=== PATIENT | female | born 1955 | race African-American/Black ===

== ENCOUNTER 2022-04-22 04:26 | Emergency (ER) | payer MEDICARE, MEDICAID ==
[~2022-04-22] VITALS: Ht 175.3 cm; Wt 59.0 kg
[2022-04-22 04:33] VITALS: BP 158/94
[2022-04-22] MEDS ORDERED: TRANEXAMIC ACID 1,000 MG/10 ML IV ONE (05:00)
[2022-04-22 05:22] LABS: BASOPHILS % 1.5 % (0.0-2.0); EOSINOPHILS % 2.3 % (0.0-5.0); HEMATOCRIT. 42.2 % (36.0-48.0); HEMOGLOBIN. 13.5 g/dL (12.0-16.0); LYMPHOCYTES % 22.1 % (20.0-50.0); MEAN CORPUSCULAR HEMOGLOBIN 26.3 pg (28.0-32.0); MEAN CORPUSCULAR VOLUME 82.1 fL (81.0-99.0); MEAN PLATELET VOLUME 8.6 fl (7.4-10.4); NEUTROPHILS % 65.1 % (40.0-76.0); PLATELET 245 x1000/uL (130-400); RED BLOOD CELL COUNT 5.14 mill/uL (4.2-5.4); RED CELL DISTRIBUTION WIDTH 15.5 % (11.6-14.6)
[2022-04-22] MEDS ORDERED: TRANEXAMIC ACID 1,000 MG/10 ML TP NR (05:30)
[2022-04-22] MEDS ORDERED: OXYMETAZOLINE HCL NASAL SPRAY 15ML BOTHNSTRLS SCH (09:00)
== END 2022-04-22 07:58 | disposition home or self-care (01) ==
LOC: ER 04:26
DX: R04.0 Epistaxis (principal); R06.00 Dyspnea, unspecified; J44.1 Chronic obstructive pulmonary disease with (acute) exacerbation; I10 Essential (primary) hypertension
CPT/HCPCS: 36415; 85025; 99283

== ENCOUNTER 2023-04-15 04:20 | Inpatient (IN) | payer MEDICARE, OTHER ==
[~2023-04-15] VITALS: Ht 165.1 cm; Wt 54.6 kg
[2023-04-15] VITALS (9 sets, daily range): BP systolic 125–137; BP diastolic 65–94; PULSE 75–98; RESP 20–40; TEMP 97.5–98.5; O2SAT 99
[2023-04-15] MEDS ORDERED: ONDANSETRON HCL 4MG/2ML INJ IV STA (04:25)
[2023-04-15] MEDS ORDERED: METHYLPREDNISOLONE SOD SUCC 125MG/2ML (ACT-O-VIAL) IV STA (04:25)
[2023-04-15] MEDS ORDERED: IPRATROPIUM BROMIDE (0.02%) 0.5MG/2.5ML NEB HHN STA (04:25)
[2023-04-15] MEDS ORDERED: MORPHINE SULFATE 4 MG/ML CPJ (NOT FOR IM USE) IV STA (04:25)
[2023-04-15] MEDS ORDERED: MAGNESIUM 2 G PREMIX 50 ML IV ONE (04:30)
[2023-04-15] MEDS: ALBUTEROL (0.083%) 2.5MG/3ML NEB HHN SCH ×3 (04:52→05:30)
[2023-04-15 05:01] LABS: BASOPHILS % 0.9 % (0.0-2.0); EOSINOPHILS % 0.1 % (0.0-5.0); HEMATOCRIT. 45.4 % (36.0-48.0); HEMOGLOBIN. 14.2 g/dL (12.0-16.0); LYMPHOCYTES % 9.7 % (20.0-50.0); MEAN CORPUSCULAR HEMOGLOBIN 26.4 pg (28.0-32.0); MEAN CORPUSCULAR HGB CONC 31.3 g/dL (31.0-37.0); MEAN CORPUSCULAR VOLUME 84.3 fL (81.0-99.0); MEAN PLATELET VOLUME 9.2 fl (7.4-10.4); MONOCYTES % 9.5 % (2.0-8.0); NEUTROPHILS % 79.8 % (40.0-76.0); PLATELET 208 x1000/uL (130-400); RED BLOOD CELL COUNT 5.38 mill/uL (4.2-5.4); RED CELL DISTRIBUTION WIDTH 16.5 % (11.6-14.6); WHITE BLOOD COUNT 10.7 x1000/uL (4.5-11.0)
[2023-04-15 05:07] LABS: BG BASE EXCESS -3.6 mmol/L (-2.0-2.0); BG CARBOXYHEMOGLOBIN 2.8 % (0.5-1.5); BG DEOXYHEMOGLOBIN 2.8 % (0.0-5.0); BG FRACTION INSPIRED OXYGEN 50; BG HCO3 ACT 23.3 mmol/L (22.0-26.0); BG METHEMOGLOBIN 0.3 % (0.0-1.5); BG OXYGEN SATURATION 97.1 % (92.0-98.5); BG OXYHEMOGLOBIN 94.1 % (94.0-97.0); BG PH 7.295 (7.350-7.450); BG PO2 101.2 mmHg (75.0-100.0); BG SAMPLE SITE RIGHT RADIAL; BG TOTAL HEMOGLOBIN 14.3 g/dL (12.0-18.0); BG VENT MODE MASK - BIPAP
[2023-04-15 05:19] LABS: ALANINE AMINOTRANSFERASE 20 IU/L (10-49); ALBUMIN 4.7 g/dL (3.2-4.8); ASPARTATE AMINOTRANSFERASE 27 IU/L (<34); BILIRUBIN TOTAL 0.4 mg/dL (0.1-1.0); CALCIUM 9.8 mg/dL (8.7-10.4); CARBON DIOXIDE 19 mEq/L (21-32); CHLORIDE 107 mEq/L (98-107); CREATININE 2.2 mg/dL (0.6-1.0); GLUCOSE 129 mg/dL (70-105); POTASSIUM 4.6 mEq/L (3.5-5.1); PROTEIN TOTAL 7.4 g/dL (6.0-8.3); SODIUM 140 mEq/L (136-145); TROPONIN I HIGH SENSITIVITY 21 ng/L (3.0-34); UREA NITROGEN BLOOD 31 mg/dL (9-23)
[2023-04-15] MEDS ORDERED: IPRATROPIUM/ALBUTEROL 0.5-3(2.5)MG/3ML NEB NEB PRN (08:30)
[2023-04-15] MEDS ORDERED: LEVOFLOXACIN 500MG PREMIX 100 ML IV SCH ×2 (08:30→09:00)
[2023-04-15] MEDS ORDERED: DOCUSATE SODIUM 100MG CAPSULE PO PRN (08:30)
[2023-04-15] MEDS ORDERED: ENOXAPARIN 40MG/0.4ML SYR SUBCUT SCH (08:30)
[2023-04-15] MEDS ORDERED: GUAIFENESIN 200MG/10ML SUGAR FREE UDC PO PRN (08:30)
[2023-04-15] MEDS ORDERED: MAGNESIUM/ALUMINUM HYDROXIDE/SIMETHICONE 30ML UDC PO PRN (08:30)
[2023-04-15] MEDS ORDERED: CLONIDINE 0.1MG TABLET PO PRN (08:30)
[2023-04-15] MEDS ORDERED: NITROGLYCERIN 0.4MG TABLET SL SL PRN (08:30)
[2023-04-15] MEDS ORDERED: ACETAMINOPHEN 325MG TABLET PO PRN ×2 (08:30)
[2023-04-15] MEDS ORDERED: ONDANSETRON HCL 4MG/2ML INJ IV PRN (08:30)
[2023-04-15] MEDS ORDERED: AMLODIPINE 5MG TABLET PO SCH (09:00)
[2023-04-15] MEDS ORDERED: FAMOTIDINE 20MG TABLET PO SCH (09:00)
[2023-04-15] MEDS: ENOXAPARIN 30MG/0.3ML SYR SUBCUT SCH (09:58)
[2023-04-15] MEDS: ZINC SULFATE 220 MG ( 50 ) CAPSULE PO SCH (09:58)
[2023-04-15] MEDS: GUAIFENESIN 600MG ER TABLET PO SCH ×2 (09:58→20:44)
[2023-04-15] MEDS: ASCORBIC ACID 500 MG TABLET PO SCH ×2 (09:58→20:44)
[2023-04-15] MEDS: ASPIRIN 325MG EC TABLET PO SCH (09:58)
[2023-04-15] MEDS: FAMOTIDINE 20MG TABLET PO SCH (09:58)
[2023-04-15 11:02] LABS: CHOLESTEROL 201 mg/dL (<200); HDL CHOLESTEROL 106 mg/dL (>65); IRON 32 ug/dL (50-170); LDL CHOLESTEROL 119 mg/dL (5-100); T4 FREE 0.85 ng/dL (0.89-1.76); THYROID STIMULATING HORMONE 0.67 uIU/mL (0.55-4.78); TOTAL IRON BINDING CAPACITY 149 ug/dl (250-425); TRIGLYCERIDE 77 mg/dL (0-150)
[2023-04-15] MEDS: IPRATROPIUM/ALBUTEROL 0.5-3(2.5)MG/3ML NEB HHN SCH ×2 (12:00→16:00)
[2023-04-15] MEDS: METHYLPREDNISOLONE SOD SUCC 125MG/2ML (ACT-O-VIAL) IV SCH ×2 (16:16→21:24)
[2023-04-15 16:46] LABS: FOLIC ACID (FOLATE) SERUM 19.12 ng/mL (>5.38); VITAMIN B12 SERUM 399 pg/mL (211-911)
[2023-04-15] MEDS: ZOLPIDEM TARTRATE 5MG TABLET PO PRN (20:44)
[2023-04-15 22:54] LABS: CREATINE KINASE 148 IU/L (34-145); CREATINE KINASE MB FRACTION 6.4 ng/mL (0.5-3.6); TROPONIN I HIGH SENSITIVITY 18 ng/L (3.0-34)
[2023-04-16] VITALS (19 sets, daily range): BP systolic 111–170; BP diastolic 61–111; PULSE 71–102; RESP 17–26; TEMP 97–98.6; O2SAT 96–100
[2023-04-16] MEDS: IPRATROPIUM/ALBUTEROL 0.5-3(2.5)MG/3ML NEB HHN SCH ×8 (00:05→23:12)
[2023-04-16 00:58] LABS: HEPATITIS B SURFACE ANTIGEN NEGATIVE (Negative); HEPATITIS C AB NON REACTIVE (Neg) (Negative)
[2023-04-16 06:34] LABS: ALANINE AMINOTRANSFERASE 17 IU/L (10-49); ALBUMIN 3.9 g/dL (3.2-4.8); ASPARTATE AMINOTRANSFERASE 21 IU/L (<34); BILIRUBIN TOTAL 0.2 mg/dL (0.1-1.0); CALCIUM 9.5 mg/dL (8.7-10.4); CARBON DIOXIDE 24 mEq/L (21-32); CHLORIDE 108 mEq/L (98-107); CREATININE 2.4 mg/dL (0.6-1.0); GLUCOSE 150 mg/dL (70-105); HEMOGLOBIN. 12.4 g/dL (12.0-16.0); MEAN CORPUSCULAR HEMOGLOBIN 26.6 pg (28.0-32.0); MEAN CORPUSCULAR HGB CONC 31.7 g/dL (31.0-37.0); MEAN CORPUSCULAR VOLUME 83.8 fL (81.0-99.0); MEAN PLATELET VOLUME 9.5 fl (7.4-10.4); PHOSPHORUS 3.4 mg/dL (2.5-4.9); PLATELET 189 x1000/uL (130-400); PROTEIN TOTAL 6.1 g/dL (6.0-8.3); RED BLOOD CELL COUNT 4.65 mill/uL (4.2-5.4); RED CELL DISTRIBUTION WIDTH 16.2 % (11.6-14.6); SODIUM 139 mEq/L (136-145); UREA NITROGEN BLOOD 53 mg/dL (9-23); WHITE BLOOD COUNT 7.1 x1000/uL (4.5-11.0)
[2023-04-16 06:37] LABS: CREATINE KINASE MB FRACTION 4.7 ng/mL (0.5-3.6)
[2023-04-16 06:52] LABS: DIFFERENTIAL COMMENT 1
[2023-04-16 08:19] LABS: POTASSIUM 6.2 mEq/L (3.5-5.1)
[2023-04-16] MEDS ORDERED: LEVOFLOXACIN 250MG PREMIX 50 ML IV SCH (09:00)
[2023-04-16] MEDS ORDERED: SODIUM POLYSTYRENE SULFONATE 15 G/60 ML BOT PO SCH (10:00)
[2023-04-16] MEDS: ASCORBIC ACID 500 MG TABLET PO SCH ×2 (10:08→20:32)
[2023-04-16] MEDS: GUAIFENESIN 600MG ER TABLET PO SCH ×2 (10:08→20:32)
[2023-04-16] MEDS: ZINC SULFATE 220 MG ( 50 ) CAPSULE PO SCH (10:08)
[2023-04-16] MEDS: ENOXAPARIN 30MG/0.3ML SYR SUBCUT SCH (10:08)
[2023-04-16] MEDS: FAMOTIDINE 20MG TABLET PO SCH (10:09)
[2023-04-16] MEDS: ASPIRIN 325MG EC TABLET PO SCH (10:09)
[2023-04-16] MEDS: AMLODIPINE 10MG TABLET PO SCH (10:09)
[2023-04-16 13:24] LABS: ANISOCYTOSIS 1+; PLATELET ESTIMATE NORMAL
[2023-04-16] MEDS ORDERED: METHYLPREDNISOLONE SOD SUCC 40MG/ML (ACT-O-VIAL) IV SCH (14:00)
[2023-04-16 18:39] LABS: TROPONIN I HIGH SENSITIVITY 18 ng/L (3.0-34)
[2023-04-16] MEDS: ZOLPIDEM TARTRATE 5MG TABLET PO PRN (20:45)
[2023-04-16] MEDS: METHYLPREDNISOLONE SOD SUCC 125MG/2ML (ACT-O-VIAL) IV SCH (21:42)
[2023-04-17] VITALS (18 sets, daily range): BP systolic 100–159; BP diastolic 61–94; PULSE 65–94; RESP 14–26; TEMP 97.2–98.8; O2SAT 91–100
[2023-04-17 01:29] LABS: TROPONIN I HIGH SENSITIVITY 17 ng/L (3.0-34)
[2023-04-17] MEDS: IPRATROPIUM/ALBUTEROL 0.5-3(2.5)MG/3ML NEB HHN SCH ×6 (04:16→23:38)
[2023-04-17] MEDS: METHYLPREDNISOLONE SOD SUCC 125MG/2ML (ACT-O-VIAL) IV SCH ×2 (05:23→21:15)
[2023-04-17 07:27] LABS: TROPONIN I HIGH SENSITIVITY 14 ng/L (3.0-34)
[2023-04-17] MEDS: ENOXAPARIN 30MG/0.3ML SYR SUBCUT SCH (09:47)
[2023-04-17] MEDS: AMLODIPINE 10MG TABLET PO SCH (09:48)
[2023-04-17] MEDS: ASCORBIC ACID 500 MG TABLET PO SCH ×2 (09:48→20:15)
[2023-04-17] MEDS: ASPIRIN 325MG EC TABLET PO SCH (09:48)
[2023-04-17] MEDS: ZINC SULFATE 220 MG ( 50 ) CAPSULE PO SCH (09:49)
[2023-04-17] MEDS: FAMOTIDINE 20MG TABLET PO SCH (09:49)
[2023-04-17] MEDS: GUAIFENESIN 600MG ER TABLET PO SCH ×2 (09:54→20:15)
[2023-04-17] MEDS: ZOLPIDEM TARTRATE 5MG TABLET PO PRN (23:07)
[2023-04-18] VITALS (12 sets, daily range): BP systolic 104–177; BP diastolic 61–90; PULSE 68–103; RESP 18–24; TEMP 97.8–98; O2SAT 91–100
[2023-04-18] MEDS: IPRATROPIUM/ALBUTEROL 0.5-3(2.5)MG/3ML NEB HHN SCH ×3 (04:17→12:26)
[2023-04-18] MEDS: METHYLPREDNISOLONE SOD SUCC 125MG/2ML (ACT-O-VIAL) IV SCH (05:32)
[2023-04-18] MEDS: GUAIFENESIN 600MG ER TABLET PO SCH (08:40)
[2023-04-18] MEDS: ASPIRIN 325MG EC TABLET PO SCH (08:40)
[2023-04-18] MEDS: FAMOTIDINE 20MG TABLET PO SCH (08:40)
[2023-04-18] MEDS: ASCORBIC ACID 500 MG TABLET PO SCH (08:40)
[2023-04-18] MEDS: ZINC SULFATE 220 MG ( 50 ) CAPSULE PO SCH (08:40)
[2023-04-18] MEDS: ENOXAPARIN 30MG/0.3ML SYR SUBCUT SCH (08:41)
[2023-04-18] MEDS: AMLODIPINE 10MG TABLET PO SCH (08:42)
[2023-04-18] MEDS ORDERED: LEVOFLOXACIN 250MG PREMIX 50 ML IV SCH (09:00)
[2023-04-18 12:16] LABS: BG BASE EXCESS -5.5 mmol/L (-2.0-2.0); BG CARBOXYHEMOGLOBIN 0.6 % (0.5-1.5); BG DEOXYHEMOGLOBIN 11.9 % (0.0-5.0); BG FRACTION INSPIRED OXYGEN 21; BG HCO3 ACT 21.7 mmol/L (22.0-26.0); BG METHEMOGLOBIN 0.1 % (0.0-1.5); BG OXYHEMOGLOBIN 87.4 % (94.0-97.0); BG PCO2 48.3 mmHg (35.0-45.0); BG PO2 56.9 mmHg (75.0-100.0); BG SAMPLE SITE RIGHT RADIAL; BG TOTAL HEMOGLOBIN 15.4 g/dL (12.0-18.0); BG VENT MODE ROOM AIR
[2023-04-18] MEDS ORDERED: ATROV INH (14:04)
[2023-04-18] MEDS ORDERED: ALBU6.7H15 INH (14:04)
[2023-04-18] MEDS ORDERED: P20 MT (14:04)
[2023-04-18] MEDS ORDERED: AZIT500T MT (14:04)
[2023-04-18 17:15] LABS: *AMPHETAMINES SCREEN URINE NEGATIVE (NEGATIVE); *BARBITURATES SCREEN URINE NEGATIVE (NEGATIVE); *BENZODIAZEPINES SCREEN URINE NEGATIVE (NEGATIVE); *COCAINE SCREEN URINE PRESUMPTIVE POSITIVE (NEGATIVE); CANNABINOID URINE SCREEN NEGATIVE (NEGATIVE); ECSTASY MDMA SCREEN URINE NEGATIVE (NEGATIVE); METHADONE URINE SCREEN Neg (NEGATIVE); OPIATES URINE SCREEN NEGATIVE (NEGATIVE); PHENCYCLIDINE URINE SCREEN NEGATIVE (NEGATIVE)
== END 2023-04-18 18:44 | disposition home or self-care (01) | DRG 140 ==
LOC: ER 04:20 → 5EST 05:51 → EDBEDREQTM 06:12 → EDBEDREQ 06:12 → EDBEDREQSVC 08:07
PROVIDERS: ADMIT Internal Medicine; ATTEND Internal Medicine
PROC: 5A09357 Assistance with Respiratory Ventilation, Less than 24 Consecutive Hours, Continuous Positive Airway Pressure (ICD-10-PCS; principal; 2023-04-15)
PROC: 5A0935A Assistance with Respiratory Ventilation, Less than 24 Consecutive Hours, High Flow/Velocity Cannula (ICD-10-PCS; 2023-04-18)
DX: J44.1 Chronic obstructive pulmonary disease with (acute) exacerbation (principal); N17.0 Acute kidney failure with tubular necrosis; J96.01 Acute respiratory failure with hypoxia; J96.02 Acute respiratory failure with hypercapnia; Z20.822 Contact with and (suspected) exposure to COVID-19; E87.4 Mixed disorder of acid-base balance; I10 Essential (primary) hypertension; E87.5 Hyperkalemia
CPT/HCPCS: 36415; 36600; 71045; 76770; 80053; 80061; 80305; 82375; 82550; 82553; 82607; 82746; 82805; 83036; 83540; 83550; 83605; 83735; 83880; 84100; 84145; 84439; 84443; 84484; 85025; 85379; 86705; 87340; 87426; 87804; 93005; 93306; 93970; 94640; 94644; 94660; 97162; 99291; J1650; J1956; J2270; J2405; J2920; J2930; J3475

== ENCOUNTER 2023-07-19 14:57 | Inpatient (IN) | payer MEDICARE, MEDICAID ==
[~2023-07-19] VITALS: Ht 175.3 cm; Wt 49.0 kg
[~2023-07-19 14:57] MED LIST: ALBU6.7H15 INH; ATOR20TA PO; FLUT1DIS3 INH; FURO20TA4 PO; IPRA3AMP9 NEB; MONT-46 PO; P20 MT; PULM50 HHN
[2023-07-19] MEDS: METHYLPREDNISOLONE SOD SUCC 125MG/2ML (ACT-O-VIAL) IV STA (15:33)
[2023-07-19] MEDS: MAGNESIUM 2 G PREMIX 50 ML IV STA (15:33)
[2023-07-19 16:30] VITALS: PULSE 73; RESP 18
[2023-07-19] MEDS: ALBUTEROL (0.083%) 2.5MG/3ML NEB HHN STA (16:31)
[2023-07-19] MEDS: IPRATROPIUM BROMIDE (0.02%) 0.5MG/2.5ML NEB HHN STA (16:32)
[2023-07-19 17:34] LABS: HEMATOCRIT. 26.4 % (36.0-48.0); HEMOGLOBIN. 7.9 g/dL (12.0-16.0); MEAN CORPUSCULAR HEMOGLOBIN 26.8 pg (28.0-32.0); MEAN CORPUSCULAR HGB CONC 29.8 g/dL (31.0-37.0); MEAN CORPUSCULAR VOLUME 89.9 fL (81.0-99.0); MEAN PLATELET VOLUME 8.6 fl (7.4-10.4); PLATELET 348 x1000/uL (130-400); RED BLOOD CELL COUNT 2.94 mill/uL (4.2-5.4); RED CELL DISTRIBUTION WIDTH 19.8 % (11.6-14.6)
[2023-07-19 17:36] LABS: DIFFERENTIAL COMMENT 1
[2023-07-19 17:38] LABS: CHLORIDE 105 mEq/L (98-107); POTASSIUM 4.3 mEq/L (3.5-5.1); SODIUM 141 mEq/L (136-145)
[2023-07-19 17:39] LABS: CALCIUM 8.7 mg/dL (8.7-10.4); CARBON DIOXIDE 30 mEq/L (21-32)
[2023-07-19 17:44] LABS: CREATININE 1.8 mg/dL (0.6-1.0); GLUCOSE 170 mg/dL (70-105); TROPONIN I HIGH SENSITIVITY 11 ng/L (3.0-34); UREA NITROGEN BLOOD 26 mg/dL (9-23)
[2023-07-19 17:46] LABS: ALANINE AMINOTRANSFERASE 8 IU/L (10-49); ALBUMIN 3.7 g/dL (3.2-4.8); ASPARTATE AMINOTRANSFERASE 18 IU/L (<34); BILIRUBIN TOTAL 0.2 mg/dL (0.1-1.0); PROTEIN TOTAL 6.1 g/dL (6.0-8.3)
[2023-07-19 18:01] LABS: ANISOCYTOSIS 1+; PLATELET ESTIMATE NORMAL
[2023-07-19 18:03] LABS: HYPOCHROMASIA 1+
[2023-07-19 18:56] VITALS: BP 151/77; PULSE 80; RESP 20; TEMP 99
[2023-07-19 20:00] VITALS: BP_SYST 100; BP_SYST 151; BP_DIAS 47; BP_DIAS 76; PULSE 102; RESP 17; TEMP 97.5
[2023-07-19] MEDS ORDERED: CLONIDINE 0.2MG TABLET PO PRN (20:00)
[2023-07-19] MEDS ORDERED: ALBUTEROL 6.7GM HFA INHALER INH SCH (20:00)
[2023-07-19] MEDS: ATORVASTATIN CALCIUM 20MG TABLET PO SCH (20:56)
[2023-07-19] MEDS: AMLODIPINE 5MG TABLET PO SCH (20:56)
[2023-07-19] MEDS: METHYLPREDNISOLONE SOD SUCC 40MG/ML (ACT-O-VIAL) IV SCH (22:29)
[2023-07-20] VITALS (10 sets, daily range): BP systolic 122–153; BP diastolic 57–83; PULSE 62–89; RESP 18–22; TEMP 97.2–98.2; O2SAT 96–100
[2023-07-20] MEDS: BUDESONIDE 0.5MG/2ML NEB HHN SCH (00:14)
[2023-07-20 06:39] LABS: BASOPHILS % 0.5 % (0.0-2.0); HEMATOCRIT. 23.1 % (36.0-48.0); HEMOGLOBIN. 7.3 g/dL (12.0-16.0); LYMPHOCYTES % 9.6 % (20.0-50.0); MEAN CORPUSCULAR HEMOGLOBIN 27.1 pg (28.0-32.0); MEAN CORPUSCULAR HGB CONC 31.6 g/dL (31.0-37.0); MEAN PLATELET VOLUME 9.2 fl (7.4-10.4); MONOCYTES % 4.5 % (2.0-8.0); NEUTROPHILS % 85.4 % (40.0-76.0); PLATELET 321 x1000/uL (130-400); RED BLOOD CELL COUNT 2.69 mill/uL (4.2-5.4); RED CELL DISTRIBUTION WIDTH 19.4 % (11.6-14.6); WHITE BLOOD COUNT 10.7 x1000/uL (4.5-11.0)
[2023-07-20 06:50] LABS: POTASSIUM 5.3 mEq/L (3.5-5.1)
[2023-07-20 06:52] LABS: CALCIUM 8.8 mg/dL (8.7-10.4)
[2023-07-20] MEDS: IPRATROPIUM/ALBUTEROL 0.5-3(2.5)MG/3ML NEB NEB PRN (08:30)
[2023-07-20] MEDS: FUROSEMIDE 20MG TABLET PO SCH (08:49)
[2023-07-20] MEDS ORDERED: MEDICATION NOT ON FORMULARY EA (Fluticasone/Salmeterol (Advair 250-50 Diskus) 1 PUFF) INH SCH (09:00)
[2023-07-20] MEDS ORDERED: PREDNISONE 20MG TABLET PO SCH (09:00)
[2023-07-20 15:24] LABS: *AMPHETAMINES SCREEN URINE NEGATIVE (NEGATIVE); *BARBITURATES SCREEN URINE NEGATIVE (NEGATIVE); *BENZODIAZEPINES SCREEN URINE NEGATIVE (NEGATIVE); *COCAINE SCREEN URINE PRESUMPTIVE POSITIVE (NEGATIVE)
[2023-07-20 15:25] LABS: CANNABINOID URINE SCREEN NEGATIVE (NEGATIVE); ECSTASY MDMA SCREEN URINE NEGATIVE (NEGATIVE); METHADONE URINE SCREEN NEGATIVE (NEGATIVE); OPIATES URINE SCREEN NEGATIVE (NEGATIVE); PHENCYCLIDINE URINE SCREEN NEGATIVE (NEGATIVE)
[2023-07-20] MEDS: MONTELUKAST SODIUM 10MG TABLET PO SCH (16:39)
[2023-07-20] MEDS: IPRATROPIUM/ALBUTEROL 0.5-3(2.5)MG/3ML NEB HHN SCH (18:00)
[2023-07-20] MEDS ORDERED: GUAIFENESIN-DM 200MG-20MG/10ML UDC PO PRN (21:45)
[2023-07-20] MEDS: HYDROCODONE/ACETAMINOPHEN 10/325MG TABLET PO PRN (22:17)
[2023-07-21] VITALS (12 sets, daily range): BP systolic 115–156; BP diastolic 63–88; PULSE 71–95; RESP 18–24; TEMP 97.5–99.7; O2SAT 94–100
[2023-07-22] VITALS: BP 139/75; PULSE 79; RESP 18; TEMP 98
[2023-07-22 01:05] VITALS: PULSE 77; RESP 18; O2SAT 100
[2023-07-22 05:50] VITALS: PULSE 75; RESP 18; O2SAT 100
[2023-07-22 06:53] LABS: HEMATOCRIT. 25.2 % (36.0-48.0); HEMOGLOBIN. 7.6 g/dL (12.0-16.0); MEAN CORPUSCULAR HEMOGLOBIN 26.3 pg (28.0-32.0); MEAN CORPUSCULAR HGB CONC 30.3 g/dL (31.0-37.0); MEAN CORPUSCULAR VOLUME 86.6 fL (81.0-99.0); MEAN PLATELET VOLUME 9.5 fl (7.4-10.4); PLATELET 344 x1000/uL (130-400); RED BLOOD CELL COUNT 2.91 mill/uL (4.2-5.4); RED CELL DISTRIBUTION WIDTH 19.3 % (11.6-14.6)
[2023-07-22 07:10] LABS: DIFFERENTIAL COMMENT 1
[2023-07-22 07:14] LABS: POTASSIUM 5.4 mEq/L (3.5-5.1)
[2023-07-22 07:15] LABS: CALCIUM 9.5 mg/dL (8.7-10.4)
[2023-07-22 07:20] LABS: CREATININE 2.1 mg/dL (0.6-1.0)
[2023-07-22 08:00] VITALS: BP 129/69; PULSE 74; RESP 20; TEMP 98
[2023-07-22 10:08] VITALS: PULSE 80; RESP 18
[2023-07-22 10:44] VITALS: BP 129/69; PULSE 74; RESP 20
[2023-07-22] MEDS ORDERED: MED4 MT (14:38)
[2023-07-22 18:15] LABS: ANISOCYTOSIS 1+; HYPOCHROMASIA 1+; PLATELET ESTIMATE NORMAL
[2023-07-22 18:16] LABS: OVALOCYTES 1+
== END 2023-07-22 15:16 | disposition left against medical advice (07) | DRG 140 ==
LOC: ER 14:57 → EDBEDREQ 17:21 → EDBEDREQTM 17:21 → 8WST 18:51
PROVIDERS: ADMIT Internal Medicine; ATTEND Internal Medicine
DX: J44.1 Chronic obstructive pulmonary disease with (acute) exacerbation (principal); J96.01 Acute respiratory failure with hypoxia; I50.33 Acute on chronic diastolic (congestive) heart failure; N17.9 Acute kidney failure, unspecified; I27.20 Pulmonary hypertension, unspecified; N18.6 End stage renal disease; I13.2 Hypertensive heart and chronic kidney disease with heart failure and with stage 5 chronic kidney disease, or end stage renal disease; F14.10 Cocaine abuse, uncomplicated; Z20.822 Contact with and (suspected) exposure to COVID-19; Z53.29 Procedure and treatment not carried out because of patient's decision for other reasons
CPT/HCPCS: 36415; 71045; 80048; 80053; 80305; 83880; 84145; 84484; 85025; 85379; 87426; 93005; 93306; 93970; 94640; 99285; J2920; J2930; J3475; J7626

== ENCOUNTER 2023-11-29 20:04 | Inpatient (IN) | payer MEDICARE, MEDICAID ==
[~2023-11-29] VITALS: Ht 170.2 cm; Wt 63.0 kg
[~2023-11-29 20:04] MED LIST changes: +ALBU4TAB6 PO; +AMLO5TAB88 PO; +FLUT1AER4 IH; +FLUT200B IH; +IPRA3AMP9 HHN; -IPRA3AMP9 NEB; +MONT-39 PO; -MONT-46 PO; -P20 MT; -PULM50 HHN
[2023-11-29 20:58] VITALS: PULSE 82; RESP 18; O2SAT 99
[2023-11-29] MEDS: ALBUTEROL (0.083%) 2.5MG/3ML NEB HHN SCH (20:59)
[2023-11-29] MEDS: METHYLPREDNISOLONE SOD SUCC 125MG/2ML (ACT-O-VIAL) IV STA (21:01)
[2023-11-29] MEDS: IPRATROPIUM BROMIDE (0.02%) 0.5MG/2.5ML NEB HHN STA (21:02)
[2023-11-29 21:28] VITALS: PULSE 78; RESP 18; O2SAT 100
[2023-11-29 21:57] VITALS: PULSE 80; RESP 18; O2SAT 100
[2023-11-29 23:01] LABS: BASOPHILS % 0.7 % (0.0-2.0); DIFFERENTIAL COMMENT 0; HEMATOCRIT. 34.1 % (36.0-48.0); HEMOGLOBIN. 10.3 g/dL (12.0-16.0); MEAN CORPUSCULAR HEMOGLOBIN 25.5 pg (28.0-32.0); MEAN CORPUSCULAR HGB CONC 30.1 g/dL (31.0-37.0); MEAN CORPUSCULAR VOLUME 84.8 fL (81.0-99.0); MEAN PLATELET VOLUME 8.9 fl (7.4-10.4); MONOCYTES % 5.3 % (2.0-8.0); PLATELET 247 x1000/uL (130-400); RED BLOOD CELL COUNT 4.03 mill/uL (4.2-5.4); RED CELL DISTRIBUTION WIDTH 20.3 % (11.6-14.6); WHITE BLOOD COUNT 7.9 x1000/uL (4.5-11.0)
[2023-11-29 23:05] LABS: CHLORIDE 106 mEq/L (98-107)
[2023-11-29 23:06] LABS: POTASSIUM 4.6 mEq/L (3.5-5.1); SODIUM 145 mEq/L (136-145)
[2023-11-29 23:07] LABS: CALCIUM 9.2 mg/dL (8.7-10.4); CARBON DIOXIDE 35 mEq/L (21-32)
[2023-11-29 23:12] LABS: CREATININE 1.7 mg/dL (0.6-1.0); GLUCOSE 140 mg/dL (70-105); UREA NITROGEN BLOOD 32 mg/dL (9-23)
[2023-11-29 23:13] LABS: TROPONIN I HIGH SENSITIVITY 26 ng/L (3.0-34)
[2023-11-30] VITALS (8 sets, daily range): BP systolic 108–152; BP diastolic 73–100; PULSE 73–91; RESP 12–28; TEMP 35.2806–37.503; O2SAT 98–100
[2023-11-30] MEDS ORDERED: DOCUSATE SODIUM 100MG CAPSULE PO PRN (11:45)
[2023-11-30] MEDS ORDERED: ONDANSETRON HCL 4MG/2ML INJ IV PRN (11:45)
[2023-11-30] MEDS ORDERED: ACETAMINOPHEN 325MG TABLET PO PRN (11:45)
[2023-11-30] MEDS: IPRATROPIUM/ALBUTEROL 0.5-3(2.5)MG/3ML NEB HHN SCH (11:49)
[2023-11-30] MEDS: ACETAMINOPHEN 325MG TABLET PO PRN (13:39)
[2023-11-30] MEDS: METHYLPREDNISOLONE SOD SUCC 40MG/ML (ACT-O-VIAL) IV SCH (13:39)
[2023-11-30 15:56] LABS: *AMPHETAMINES SCREEN URINE NEGATIVE (NEGATIVE); *BARBITURATES SCREEN URINE NEGATIVE (NEGATIVE); *BENZODIAZEPINES SCREEN URINE NEGATIVE (NEGATIVE); *COCAINE SCREEN URINE PRESUMPTIVE POSITIVE (NEGATIVE); CANNABINOID URINE SCREEN NEGATIVE (NEGATIVE); ECSTASY MDMA SCREEN URINE NEGATIVE (NEGATIVE); METHADONE URINE SCREEN NEGATIVE (NEGATIVE); OPIATES URINE SCREEN NEGATIVE (NEGATIVE); PHENCYCLIDINE URINE SCREEN NEGATIVE (NEGATIVE)
[2023-11-30 16:53] LABS: TROPONIN I HIGH SENSITIVITY 17 ng/L (3.0-34)
[2023-11-30] MEDS: BUDESONIDE 0.5MG/2ML NEB HHN SCH (21:10)
[2023-12-01] VITALS (11 sets, daily range): BP systolic 133–178; BP diastolic 72–98; PULSE 70–95; RESP 16–24; TEMP 36.72516–37.05852; O2SAT 99–100
[2023-12-01] MEDS: ZOLPIDEM TARTRATE 5MG TABLET PO PRN (02:03)
[2023-12-01 06:33] LABS: CALCIUM 9.4 mg/dL (8.7-10.4)
[2023-12-01 06:35] LABS: HEMATOCRIT. 32.6 % (36.0-48.0); HEMOGLOBIN. 9.6 g/dL (12.0-16.0); MEAN CORPUSCULAR HEMOGLOBIN 24.4 pg (28.0-32.0); MEAN CORPUSCULAR HGB CONC 29.4 g/dL (31.0-37.0); MEAN CORPUSCULAR VOLUME 82.9 fL (81.0-99.0); PLATELET 212 x1000/uL (130-400); RED BLOOD CELL COUNT 3.93 mill/uL (4.2-5.4); RED CELL DISTRIBUTION WIDTH 20.1 % (11.6-14.6); WHITE BLOOD COUNT 11.1 x1000/uL (4.5-11.0)
[2023-12-01 06:38] LABS: CREATININE 1.9 mg/dL (0.6-1.0)
[2023-12-01 07:00] LABS: DIFFERENTIAL COMMENT 1
[2023-12-01 07:02] LABS: POTASSIUM 6.5 mEq/L (3.5-5.1)
[2023-12-01 08:31] LABS: POTASSIUM 6.3 mEq/L (3.5-5.1)
[2023-12-01] MEDS: DEXTROSE 50% WATER 50ML SYRINGE IV NR (14:19)
[2023-12-01] MEDS: SODIUM ZIRCONIUM CYCLOSILICATE 10GM/PACKET PO SCH (14:24)
[2023-12-01] MEDS: INSULIN REGULAR (HUMULIN R) 1000UNITS/10ML VIAL IV NR (14:24)
[2023-12-01 15:01] LABS: ANISOCYTOSIS 2+; PLATELET ESTIMATE NORMAL
[2023-12-01 18:51] LABS: POTASSIUM 5.6 mEq/L (3.5-5.1)
[2023-12-02] VITALS (12 sets, daily range): BP systolic 133–173; BP diastolic 85–102; PULSE 84–96; RESP 18–28; TEMP 36.72516–37.05852; O2SAT 97–100
[2023-12-02 05:58] LABS: CHLORIDE 105 mEq/L (98-107); SODIUM 142 mEq/L (136-145)
[2023-12-02 06:02] LABS: CALCIUM 9.4 mg/dL (8.7-10.4); CARBON DIOXIDE 30 mEq/L (21-32)
[2023-12-02 06:07] LABS: CREATININE 1.9 mg/dL (0.6-1.0); GLUCOSE 183 mg/dL (70-105); UREA NITROGEN BLOOD 41 mg/dL (9-23)
[2023-12-02 06:09] LABS: ALANINE AMINOTRANSFERASE 16 IU/L (10-49); ASPARTATE AMINOTRANSFERASE 13 IU/L (<34); PHOSPHORUS 2.8 mg/dL (2.5-4.9)
[2023-12-02 06:10] LABS: BILIRUBIN TOTAL 0.3 mg/dL (0.1-1.0); PROTEIN TOTAL 5.9 g/dL (6.0-8.3)
[2023-12-02 06:37] LABS: BILIRUBIN DIRECT < 0.1 mg/dL (<=3.0)
[2023-12-02 07:28] LABS: HEMATOCRIT. 31.5 % (36.0-48.0); HEMOGLOBIN. 9.4 g/dL (12.0-16.0); MEAN CORPUSCULAR HEMOGLOBIN 24.9 pg (28.0-32.0); MEAN CORPUSCULAR HGB CONC 29.7 g/dL (31.0-37.0); MEAN CORPUSCULAR VOLUME 83.8 fL (81.0-99.0); MEAN PLATELET VOLUME 9.6 fl (7.4-10.4); PLATELET 196 x1000/uL (130-400); RED BLOOD CELL COUNT 3.76 mill/uL (4.2-5.4); RED CELL DISTRIBUTION WIDTH 20.4 % (11.6-14.6); WHITE BLOOD COUNT 15.8 x1000/uL (4.5-11.0)
[2023-12-02 07:31] LABS: DIFFERENTIAL COMMENT 1
[2023-12-02] MEDS: CLONIDINE 0.1MG TABLET PO PRN (16:30)
[2023-12-02 22:00] LABS: ANISOCYTOSIS 1+; HYPOCHROMASIA 1+; PLATELET ESTIMATE NORMAL
[2023-12-03] VITALS (10 sets, daily range): BP systolic 135–168; BP diastolic 79–95; PULSE 76–99; RESP 18–24; TEMP 36.61404–36.89184; O2SAT 92–100
[2023-12-03 09:48] LABS: HEMATOCRIT. 33.8 % (36.0-48.0); HEMOGLOBIN. 10.2 g/dL (12.0-16.0); MEAN CORPUSCULAR HEMOGLOBIN 24.9 pg (28.0-32.0); MEAN CORPUSCULAR HGB CONC 30.2 g/dL (31.0-37.0); MEAN CORPUSCULAR VOLUME 82.6 fL (81.0-99.0); MEAN PLATELET VOLUME 9.6 fl (7.4-10.4); PLATELET 187 x1000/uL (130-400); RED BLOOD CELL COUNT 4.09 mill/uL (4.2-5.4); RED CELL DISTRIBUTION WIDTH 20.2 % (11.6-14.6); WHITE BLOOD COUNT 19.5 x1000/uL (4.5-11.0)
[2023-12-03 09:52] LABS: CHLORIDE 102 mEq/L (98-107); SODIUM 141 mEq/L (136-145)
[2023-12-03 09:53] LABS: CALCIUM 9.7 mg/dL (8.7-10.4); CARBON DIOXIDE 33 mEq/L (21-32)
[2023-12-03 09:55] LABS: DIFFERENTIAL COMMENT 1
[2023-12-03 09:58] LABS: CREATININE 1.8 mg/dL (0.6-1.0); GLUCOSE 147 mg/dL (70-105)
[2023-12-03 09:59] LABS: UREA NITROGEN BLOOD 40 mg/dL (9-23)
[2023-12-03 10:01] LABS: PHOSPHORUS 3.5 mg/dL (2.5-4.9)
[2023-12-03] MEDS: HYDROCODONE/ACETAMINOPHEN 5/325MG TABLET PO NR (15:17)
[2023-12-03 15:49] LABS: PLATELET ESTIMATE NORMAL
[2023-12-04] VITALS (11 sets, daily range): BP systolic 125–163; BP diastolic 65–99; PULSE 73–98; RESP 16–24; TEMP 36.83628–37.16964; O2SAT 95–100
[2023-12-04 07:03] LABS: HEMATOCRIT. 32.4 % (36.0-48.0); HEMOGLOBIN. 9.6 g/dL (12.0-16.0); MEAN CORPUSCULAR HEMOGLOBIN 24.7 pg (28.0-32.0); MEAN CORPUSCULAR HGB CONC 29.8 g/dL (31.0-37.0); MEAN PLATELET VOLUME 9.8 fl (7.4-10.4); PLATELET 138 x1000/uL (130-400); RED CELL DISTRIBUTION WIDTH 20.2 % (11.6-14.6); WHITE BLOOD COUNT 17.1 x1000/uL (4.5-11.0)
[2023-12-04 07:06] LABS: CHLORIDE 102 mEq/L (98-107); POTASSIUM 4.9 mEq/L (3.5-5.1); SODIUM 138 mEq/L (136-145)
[2023-12-04 07:07] LABS: CALCIUM 9.4 mg/dL (8.7-10.4); CARBON DIOXIDE 29 mEq/L (21-32)
[2023-12-04 07:12] LABS: CREATININE 1.8 mg/dL (0.6-1.0); FOLIC ACID (FOLATE) SERUM 12.79 ng/mL (>5.38); GLUCOSE 132 mg/dL (70-105); IRON 53 ug/dL (50-170); UREA NITROGEN BLOOD 45 mg/dL (9-23)
[2023-12-04 07:13] LABS: VITAMIN B12 SERUM 378 pg/mL (211-911)
[2023-12-04 07:14] LABS: FERRITIN 29 ng/mL (10-291); PHOSPHORUS 4.8 mg/dL (2.5-4.9); TOTAL IRON BINDING CAPACITY 274 ug/dl (250-425)
[2023-12-04 07:25] LABS: DIFFERENTIAL COMMENT 1
[2023-12-04] MEDS: CYANOCOBALAMIN 100MCG TABLET PO SCH (12:09)
[2023-12-04 21:52] LABS: ANISOCYTOSIS 1+; PLATELET ESTIMATE NORMAL
[2023-12-05] VITALS (11 sets, daily range): BP systolic 125–160; BP diastolic 72–104; PULSE 75–98; RESP 16–26; TEMP 36.44736–37.11408; O2SAT 92–100
[2023-12-05 07:06] LABS: CARBON DIOXIDE 30 mEq/L (21-32); CHLORIDE 103 mEq/L (98-107); POTASSIUM 5.6 mEq/L (3.5-5.1); SODIUM 138 mEq/L (136-145)
[2023-12-05 07:07] LABS: CALCIUM 9.4 mg/dL (8.7-10.4)
[2023-12-05 07:10] LABS: HEMATOCRIT. 31.8 % (36.0-48.0); HEMOGLOBIN. 9.7 g/dL (12.0-16.0); MEAN CORPUSCULAR HEMOGLOBIN 25.2 pg (28.0-32.0); MEAN CORPUSCULAR HGB CONC 30.6 g/dL (31.0-37.0); MEAN CORPUSCULAR VOLUME 82.1 fL (81.0-99.0); MEAN PLATELET VOLUME 9.7 fl (7.4-10.4); PLATELET 167 x1000/uL (130-400); RED BLOOD CELL COUNT 3.87 mill/uL (4.2-5.4); WHITE BLOOD COUNT 15.8 x1000/uL (4.5-11.0)
[2023-12-05 07:12] LABS: GLUCOSE 117 mg/dL (70-105); UREA NITROGEN BLOOD 52 mg/dL (9-23)
[2023-12-05 07:14] LABS: PHOSPHORUS 4.4 mg/dL (2.5-4.9)
[2023-12-05 07:19] LABS: DIFFERENTIAL COMMENT 1
[2023-12-05] MEDS: SODIUM ZIRCONIUM CYCLOSILICATE 10GM/PACKET PO NR (13:00)
[2023-12-05] MEDS: IPRATROPIUM/ALBUTEROL 0.5-3(2.5)MG/3ML NEB HHN SCH (15:07)
[2023-12-05 16:35] LABS: ANISOCYTOSIS 2+; PLATELET ESTIMATE NORMAL
[2023-12-05] MEDS: THEOPHYLLINE ANHYDROUS 80 MG/15 ML 120ML PO SCH (21:24)
[2023-12-06] VITALS: BP 155/80; PULSE 92; RESP 21; O2SAT 98
[2023-12-06 00:02] VITALS: PULSE 85; RESP 25
[2023-12-06] MEDS: TERBUTALINE SULFATE 1MG/ML VIAL SUBCUT NR (00:19)
[2023-12-06 04:00] VITALS: BP 116/60; RESP 22; O2SAT 95
[2023-12-06 04:19] VITALS: PULSE 84; RESP 24; O2SAT 97
[2023-12-06 08:00] VITALS: BP 142/70; PULSE 82; RESP 20; TEMP 36.83628; O2SAT 94
[2023-12-06 08:04] LABS: HEMATOCRIT. 31.8 % (36.0-48.0); HEMOGLOBIN. 9.6 g/dL (12.0-16.0); MEAN CORPUSCULAR VOLUME 83.1 fL (81.0-99.0); MEAN PLATELET VOLUME 10.2 fl (7.4-10.4); PLATELET 158 x1000/uL (130-400); RED BLOOD CELL COUNT 3.83 mill/uL (4.2-5.4); RED CELL DISTRIBUTION WIDTH 19.9 % (11.6-14.6); WHITE BLOOD COUNT 13.2 x1000/uL (4.5-11.0)
[2023-12-06 08:06] LABS: CHLORIDE 100 mEq/L (98-107); POTASSIUM 5.2 mEq/L (3.5-5.1); SODIUM 137 mEq/L (136-145)
[2023-12-06 08:08] LABS: CALCIUM 9.4 mg/dL (8.7-10.4); CARBON DIOXIDE 31 mEq/L (21-32)
[2023-12-06 08:13] LABS: CREATININE 1.8 mg/dL (0.6-1.0); GLUCOSE 178 mg/dL (70-105); UREA NITROGEN BLOOD 49 mg/dL (9-23)
[2023-12-06 08:15] LABS: ALANINE AMINOTRANSFERASE 20 IU/L (10-49); ALBUMIN 3.9 g/dL (3.2-4.8); ASPARTATE AMINOTRANSFERASE 15 IU/L (<34); BILIRUBIN TOTAL 0.4 mg/dL (0.1-1.0); PROTEIN TOTAL 5.8 g/dL (6.0-8.3)
[2023-12-06 08:24] LABS: DIFFERENTIAL COMMENT 1
[2023-12-06 08:33] LABS: BILIRUBIN DIRECT < 0.1 mg/dL (<=3.0)
[2023-12-06 08:34] LABS: PHOSPHORUS 4.7 mg/dL (2.5-4.9)
[2023-12-06 09:23] VITALS: PULSE 86; RESP 22; O2SAT 95
[2023-12-06] MEDS ORDERED: SODIUM ZIRCONIUM CYCLOSILICATE 10GM/PACKET PO NR (11:45)
[2023-12-06] MEDS ORDERED: SODI10PO PO (12:08)
[2023-12-06] MEDS ORDERED: ALBU4TAB6 PO (12:08)
[2023-12-06] MEDS ORDERED: P20 MT (12:08)
[2023-12-06] MEDS ORDERED: PANT40TA51 MT (12:08)
[2023-12-06] MEDS ORDERED: METHYLPREDNISOLONE SOD SUCC 40MG/ML (ACT-O-VIAL) IV SCH (14:00)
[2023-12-06 16:26] LABS: ANISOCYTOSIS 2+; PLATELET ESTIMATE NORMAL
[2023-12-11] MEDS ORDERED: AZIT500T8 MT (10:46)
[2023-12-11] MEDS ORDERED: P20 MT (10:46)
[2023-12-11] MEDS ORDERED: TIOT18CA3 INH (10:46)
[2023-12-11] MEDS ORDERED: ALBU90AE INH (10:46)
== END 2023-12-06 11:55 | disposition left against medical advice (07) | DRG 133 ==
LOC: ER 20:04 → 3WST 11-30 01:12 → EDBEDREQ 11-30 01:20 → EDBEDREQTM 11-30 01:20
PROVIDERS: ADMIT Internal Medicine; ATTEND Internal Medicine
DX: J96.22 Acute and chronic respiratory failure with hypercapnia (principal); I27.20 Pulmonary hypertension, unspecified; I13.0 Hypertensive heart and chronic kidney disease with heart failure and stage 1 through stage 4 chronic kidney disease, or unspecified chronic kidney disease; I50.9 Heart failure, unspecified; K92.2 Gastrointestinal hemorrhage, unspecified; J68.0 Bronchitis and pneumonitis due to chemicals, gases, fumes and vapors; J44.1 Chronic obstructive pulmonary disease with (acute) exacerbation; D64.9 Anemia, unspecified; E78.5 Hyperlipidemia, unspecified; I16.0 Hypertensive urgency; E87.5 Hyperkalemia; N28.1 Cyst of kidney, acquired; F14.129 Cocaine abuse with intoxication, unspecified; N18.30 Chronic kidney disease, stage 3 unspecified; F17.200 Nicotine dependence, unspecified, uncomplicated; Z53.29 Procedure and treatment not carried out because of patient's decision for other reasons; Z99.81 Dependence on supplemental oxygen; Z79.51 Long term (current) use of inhaled steroids; Z79.899 Other long term (current) drug therapy; Z82.49 Family history of ischemic heart disease and other diseases of the circulatory system
CPT/HCPCS: 36415; 71045; 74176; 80048; 80076; 80305; 82270; 82607; 82728; 82746; 83540; 83550; 83735; 83880; 84100; 84132; 84484; 85025; 85044; 85379; 93005; 94640; 99291; C1893; J1815; J2405; J2919; J2920; J3105; J7626

== ENCOUNTER 2023-12-18 14:36 | Inpatient (IN) | payer MEDICARE, MEDICAID ==
[~2023-12-18] VITALS: Ht 160 cm; Wt 59.0 kg
[~2023-12-18 14:36] MED LIST changes: -ALBU4TAB6 PO; -ALBU6.7H15 INH; +ALBU90AE INH; +AZIT500T8 MT; -FLUT1AER4 IH; -FLUT1DIS3 INH; -FLUT200B IH; -IPRA3AMP9 HHN; +P20 MT; +PANT40TA51 MT; +TIOT18CA3 INH
[2023-12-18] MEDS ORDERED: METHYLPREDNISOLONE SOD SUCC 125MG/2ML (ACT-O-VIAL) IV STA (14:55)
[2023-12-18] MEDS ORDERED: ALBUTEROL (0.083%) 2.5MG/3ML NEB HHN SCH (15:00)
[2023-12-18] MEDS: METHYLPREDNISOLONE SOD SUCC 125MG/2ML (ACT-O-VIAL) IV NR (17:30)
[2023-12-18 17:41] LABS: CLARITY URINE CLEAR (CLEAR); COLOR URINE YELLOW (YELLOW); GLUCOSE URINE NEGATIVE (NEGATIVE); KETONES URINE NEGATIVE (NEGATIVE); LEUKOCYTE ESTERASE URINE NEGATIVE (NEGATIVE); NITRITE URINE NEGATIVE (NEGATIVE); OCCULT BLOOD URINE NEGATIVE (NEGATIVE); PH URINE 7.5 (4.5-8.0); PROTEIN URINE 3+ (NEGATIVE); SPECIFIC GRAVITY URINE 1.015 (1.005-1.030)
[2023-12-18] MEDS: IPRATROPIUM BROMIDE (0.02%) 0.5MG/2.5ML NEB HHN STA (17:57)
[2023-12-18 18:02] LABS: BACTERIA URINE TRACE; RBC URINE 0-2 /hpf (0-2); SQUAMOUS EPITHELIAL CELL URINE FEW /lpf (RARE/1+); WBC URINE NONE SEEN /hpf (0-2)
[2023-12-18 18:12] VITALS: PULSE 89; RESP 24; O2SAT 100
[2023-12-18] MEDS: ALBUTEROL (0.083%) 2.5MG/3ML NEB HHN SCH (18:12)
[2023-12-18 18:37] LABS: BASOPHILS % 0.6 % (0.0-2.0); DIFFERENTIAL COMMENT 0; EOSINOPHILS % 1.5 % (0.0-5.0); HEMATOCRIT. 33.1 % (36.0-48.0); HEMOGLOBIN. 9.9 g/dL (12.0-16.0); LYMPHOCYTES % 11.2 % (20.0-50.0); MEAN CORPUSCULAR HEMOGLOBIN 25.8 pg (28.0-32.0); MEAN CORPUSCULAR VOLUME 86.1 fL (81.0-99.0); MEAN PLATELET VOLUME 8.6 fl (7.4-10.4); MONOCYTES % 10.4 % (2.0-8.0); NEUTROPHILS % 76.3 % (40.0-76.0); PLATELET 201 x1000/uL (130-400); RED BLOOD CELL COUNT 3.84 mill/uL (4.2-5.4); RED CELL DISTRIBUTION WIDTH 20.4 % (11.6-14.6); WHITE BLOOD COUNT 8.5 x1000/uL (4.5-11.0)
[2023-12-18 18:49] LABS: TROPONIN I HIGH SENSITIVITY 28 ng/L (3.0-34)
[2023-12-18 19:07] LABS: POTASSIUM 4.4 mEq/L (3.5-5.1)
[2023-12-18 19:08] LABS: CALCIUM 8.6 mg/dL (8.7-10.4)
[2023-12-18 19:13] VITALS: PULSE 90; RESP 20; O2SAT 100
[2023-12-18 19:13] LABS: CREATININE 1.6 mg/dL (0.6-1.0)
[2023-12-18] MEDS ORDERED: DOCUSATE SODIUM 100MG CAPSULE PO PRN (20:15)
[2023-12-18] MEDS ORDERED: MAGNESIUM/ALUMINUM HYDROXIDE/SIMETHICONE 30ML UDC PO PRN (20:15)
[2023-12-18] MEDS ORDERED: GUAIFENESIN 200MG/10ML SUGAR FREE UDC PO PRN (20:15)
[2023-12-18] MEDS ORDERED: NITROGLYCERIN 0.4MG TABLET SL SL PRN (20:15)
[2023-12-18] MEDS ORDERED: ONDANSETRON HCL 4MG/2ML INJ IV PRN (20:15)
[2023-12-18] MEDS ORDERED: ACETAMINOPHEN 325MG TABLET PO PRN (20:15)
[2023-12-18] MEDS ORDERED: NALOXONE HCL 0.4MG/ML VIAL IV PRN (20:30)
[2023-12-18] MEDS ORDERED: ENOXAPARIN 30MG/0.3ML SYR SUBCUT SCH (20:30)
[2023-12-18] MEDS: SODIUM CHLORIDE 0.9% 1,000 ML IV SCH (21:00)
[2023-12-18] MEDS: METOPROLOL TARTRATE 25MG TABLET PO SCH (21:00)
[2023-12-18] MEDS: METHYLPREDNISOLONE SOD SUCC 40MG/ML (ACT-O-VIAL) IV SCH (22:00)
[2023-12-18 23:13] LABS: IRON 31 ug/dL (50-170)
[2023-12-18 23:16] LABS: CREATINE KINASE 153 IU/L (34-145); TOTAL IRON BINDING CAPACITY 171 ug/dl (250-425)
[2023-12-18 23:19] LABS: FERRITIN 54 ng/mL (10-291); FOLIC ACID (FOLATE) SERUM > 20.00 ng/mL (>5.38); VITAMIN B12 SERUM 507 pg/mL (211-911)
[2023-12-19] VITALS (10 sets, daily range): BP systolic 130–192; BP diastolic 70–92; PULSE 62–106; RESP 16–24; TEMP 35.78064–37.503; O2SAT 90–100
[2023-12-19] MEDS: IPRATROPIUM/ALBUTEROL 0.5-3(2.5)MG/3ML NEB HHN SCH (05:53)
[2023-12-19] MEDS: BUDESONIDE 0.5MG/2ML NEB HHN SCH (08:43)
[2023-12-19] MEDS ORDERED: INFLUENZA VACCINE 05/PF 0.5 ML SYRINGE IM ONE (09:00)
[2023-12-19] MEDS ORDERED: PNEUMOCOCCAL 20-VAL CONJ-DIP CRM 0.5ML IM ONE (09:00)
[2023-12-19] MEDS: ASPIRIN 81MG EC TABLET PO SCH (09:02)
[2023-12-19] MEDS: AMLODIPINE 5MG TABLET PO SCH (09:04)
[2023-12-19] MEDS: ENOXAPARIN 30MG/0.3ML SYR SUBCUT SCH (09:05)
[2023-12-19 12:11] LABS: HEMATOCRIT. 31.5 % (36.0-48.0); HEMOGLOBIN. 9.3 g/dL (12.0-16.0); MEAN CORPUSCULAR HEMOGLOBIN 25.4 pg (28.0-32.0); MEAN CORPUSCULAR HGB CONC 29.6 g/dL (31.0-37.0); MEAN CORPUSCULAR VOLUME 85.7 fL (81.0-99.0); MEAN PLATELET VOLUME 8.3 fl (7.4-10.4); PLATELET 184 x1000/uL (130-400); RED BLOOD CELL COUNT 3.67 mill/uL (4.2-5.4); RED CELL DISTRIBUTION WIDTH 20.7 % (11.6-14.6); WHITE BLOOD COUNT 9.3 x1000/uL (4.5-11.0)
[2023-12-19 12:16] LABS: DIFFERENTIAL COMMENT 1
[2023-12-19 12:18] LABS: POTASSIUM 5.1 mEq/L (3.5-5.1)
[2023-12-19 12:19] LABS: CALCIUM 8.9 mg/dL (8.7-10.4)
[2023-12-19 12:23] LABS: CREATINE KINASE 138 IU/L (34-145)
[2023-12-19 12:24] LABS: CREATININE 1.6 mg/dL (0.6-1.0)
[2023-12-19 12:28] LABS: T4 FREE 0.94 ng/dL (0.89-1.76); THYROID STIMULATING HORMONE 0.32 uIU/mL (0.55-4.78)
[2023-12-19 12:44] LABS: HEPATITIS B SURFACE ANTIGEN NEGATIVE (Negative)
[2023-12-19 13:06] LABS: HEPATITIS C AB NON REACTIVE (Neg) (Negative)
[2023-12-19] MEDS: CLONIDINE 0.1MG TABLET PO PRN (13:11)
[2023-12-19] MEDS: HYDROCODONE/ACETAMINOPHEN 5/325MG TABLET PO PRN (15:47)
[2023-12-19] MEDS: METHYLPREDNISOLONE SOD SUCC 125MG/2ML (ACT-O-VIAL) IV SCH (15:47)
[2023-12-19 16:06] LABS: CLARITY URINE CLEAR (CLEAR); COLOR URINE YELLOW (YELLOW); GLUCOSE URINE TRACE (NEGATIVE); KETONES URINE NEGATIVE (NEGATIVE); LEUKOCYTE ESTERASE URINE NEGATIVE (NEGATIVE); NITRITE URINE NEGATIVE (NEGATIVE); OCCULT BLOOD URINE NEGATIVE (NEGATIVE); PH URINE 8.5 (4.5-8.0); PROTEIN URINE 3+ (NEGATIVE); SPECIFIC GRAVITY URINE 1.013 (1.005-1.030); UROBILINOGEN URINE 0.2 E.U./dL (0.2-1.0)
[2023-12-19 16:25] LABS: SODIUM URINE RANDOM 136 mEq/L
[2023-12-19 16:32] LABS: *AMPHETAMINES SCREEN URINE NEGATIVE (NEGATIVE); *BARBITURATES SCREEN URINE NEGATIVE (NEGATIVE); *BENZODIAZEPINES SCREEN URINE NEGATIVE (NEGATIVE); *COCAINE SCREEN URINE PRESUMPTIVE POSITIVE (NEGATIVE); BACTERIA URINE TRACE; METHADONE URINE SCREEN NEGATIVE (NEGATIVE); OPIATES URINE SCREEN NEGATIVE (NEGATIVE); PHENCYCLIDINE URINE SCREEN NEGATIVE (NEGATIVE); RBC URINE 0-2 /hpf (0-2); SQUAMOUS EPITHELIAL CELL URINE FEW /lpf (RARE/1+); WBC URINE 0-2 /hpf (0-2)
[2023-12-19 16:33] LABS: CANNABINOID URINE SCREEN NEGATIVE (NEGATIVE); ECSTASY MDMA SCREEN URINE NEGATIVE (NEGATIVE)
[2023-12-19 16:40] LABS: OSMOLALITY URINE 460 mOsm/kg (500-850)
[2023-12-19] MEDS: TERBUTALINE SULFATE 1MG/ML VIAL SUBCUT NR (17:17)
[2023-12-19] MEDS: THEOPHYLLINE ANHYDROUS 80 MG/15 ML 120ML PO SCH (17:17)
[2023-12-19 20:22] LABS: PLATELET ESTIMATE NORMAL
[2023-12-19] MEDS: MELATONIN 3MG TABLET PO SCH (21:41)
[2023-12-20] VITALS (8 sets, daily range): BP systolic 119–173; BP diastolic 74–83; PULSE 66–89; RESP 18–26; TEMP 36.50292–37.2252; O2SAT 97–100
[2023-12-20 07:32] LABS: POTASSIUM 5.1 mEq/L (3.5-5.1)
[2023-12-20 07:33] LABS: CALCIUM 8.8 mg/dL (8.7-10.4)
[2023-12-20 07:36] LABS: BASOPHILS % 0.1 % (0.0-2.0); HEMATOCRIT. 31.4 % (36.0-48.0); HEMOGLOBIN. 9.4 g/dL (12.0-16.0); LYMPHOCYTES % 5.2 % (20.0-50.0); MEAN CORPUSCULAR HEMOGLOBIN 25.2 pg (28.0-32.0); MEAN CORPUSCULAR VOLUME 84.1 fL (81.0-99.0); MEAN PLATELET VOLUME 8.7 fl (7.4-10.4); MONOCYTES % 3.4 % (2.0-8.0); NEUTROPHILS % 91.3 % (40.0-76.0); PLATELET 198 x1000/uL (130-400); RED BLOOD CELL COUNT 3.73 mill/uL (4.2-5.4); RED CELL DISTRIBUTION WIDTH 19.9 % (11.6-14.6); WHITE BLOOD COUNT 11.1 x1000/uL (4.5-11.0)
[2023-12-20 07:38] LABS: CREATININE 1.5 mg/dL (0.6-1.0)
[2023-12-20 07:46] LABS: ADD RBC MORPHOLOGY YES; DIFFERENTIAL COMMENT 1
[2023-12-20 09:44] LABS: ANISOCYTOSIS 2+; PLATELET ESTIMATE NORMAL
[2023-12-20] MEDS: IPRATROPIUM/ALBUTEROL 0.5-3(2.5)MG/3ML NEB HHN PRN (17:59)
[2023-12-20] MEDS: METHYLPREDNISOLONE SOD SUCC 40MG/ML (ACT-O-VIAL) IV SCH (22:31)
[2023-12-21] VITALS (10 sets, daily range): BP systolic 110–167; BP diastolic 76–89; PULSE 65–94; RESP 18–22; TEMP 35.89176–37.16964; O2SAT 93–100
[2023-12-21] MEDS ORDERED: METH4TAB95 MT (08:14)
[2023-12-21] MEDS ORDERED: ASPI-1406 PO (08:14)
[2023-12-21] MEDS ORDERED: AMLO5TAB88 PO (08:14)
[2023-12-21] MEDS ORDERED: METO25TA6 PO (08:14)
[2023-12-21 19:42] LABS: HEMATOCRIT. 35.6 % (36.0-48.0); HEMOGLOBIN. 10.6 g/dL (12.0-16.0); MEAN CORPUSCULAR HEMOGLOBIN 25.5 pg (28.0-32.0); MEAN CORPUSCULAR HGB CONC 29.8 g/dL (31.0-37.0); MEAN CORPUSCULAR VOLUME 85.5 fL (81.0-99.0); MEAN PLATELET VOLUME 8.7 fl (7.4-10.4); PLATELET 201 x1000/uL (130-400); RED BLOOD CELL COUNT 4.17 mill/uL (4.2-5.4); WHITE BLOOD COUNT 12.4 x1000/uL (4.5-11.0)
[2023-12-21 19:45] LABS: POTASSIUM 5.2 mEq/L (3.5-5.1)
[2023-12-21 19:47] LABS: CALCIUM 9.6 mg/dL (8.7-10.4)
[2023-12-21 19:51] LABS: CREATININE 1.8 mg/dL (0.6-1.0)
[2023-12-21 19:55] LABS: DIFFERENTIAL COMMENT 1
[2023-12-21 20:49] LABS: ANISOCYTOSIS 2+; PLATELET ESTIMATE NORMAL
[2023-12-21 20:50] LABS: OVALOCYTES 1+
[2023-12-22] VITALS (10 sets, daily range): BP systolic 113–170; BP diastolic 69–96; PULSE 63–84; RESP 18–21; TEMP 36.3918–36.89184; O2SAT 94–100
[2023-12-22 06:17] LABS: HEMATOCRIT. 33.3 % (36.0-48.0); HEMOGLOBIN. 9.9 g/dL (12.0-16.0); MEAN CORPUSCULAR HGB CONC 29.8 g/dL (31.0-37.0); MEAN CORPUSCULAR VOLUME 83.9 fL (81.0-99.0); MEAN PLATELET VOLUME 8.9 fl (7.4-10.4); PLATELET 217 x1000/uL (130-400); RED BLOOD CELL COUNT 3.97 mill/uL (4.2-5.4); RED CELL DISTRIBUTION WIDTH 20.3 % (11.6-14.6); WHITE BLOOD COUNT 11.7 x1000/uL (4.5-11.0)
[2023-12-22 06:29] LABS: CALCIUM 9.4 mg/dL (8.7-10.4); POTASSIUM 5.4 mEq/L (3.5-5.1)
[2023-12-22 06:34] LABS: DIFFERENTIAL COMMENT 1
[2023-12-22 06:35] LABS: CREATININE 1.7 mg/dL (0.6-1.0)
[2023-12-22] MEDS: SODIUM ZIRCONIUM CYCLOSILICATE 10GM/PACKET PO NR (08:15)
[2023-12-22] MEDS ORDERED: DEXTROSE 50% WATER 50ML SYRINGE IV PRN (08:15)
[2023-12-22] MEDS: BLOOD SUGAR DIAGNOSTIC STRIP TEST SCH (12:10)
[2023-12-22] MEDS: INSULIN LISPRO 100 UNITS/ML SUBCUT SCH (12:40)
[2023-12-22 16:37] LABS: POTASSIUM 5.3 mEq/L (3.5-5.1)
[2023-12-22] MEDS: METHYLPREDNISOLONE SOD SUCC 40MG/ML (ACT-O-VIAL) IV SCH (20:31)
[2023-12-22 20:36] LABS: ANISOCYTOSIS 2+; OVALOCYTES 1+; PLATELET ESTIMATE NORMAL
[2023-12-23] VITALS (11 sets, daily range): BP systolic 129–170; BP diastolic 59–92; PULSE 69–102; RESP 16–22; TEMP 35.94732–36.6696; O2SAT 97–100
[2023-12-23 11:06] LABS: POTASSIUM 5.4 mEq/L (3.5-5.1)
[2023-12-23 11:08] LABS: CALCIUM 9.7 mg/dL (8.7-10.4)
[2023-12-23 11:12] LABS: CREATININE 1.9 mg/dL (0.6-1.0)
[2023-12-23 11:17] LABS: HEMATOCRIT. 34.6 % (36.0-48.0); HEMOGLOBIN. 10.4 g/dL (12.0-16.0); MEAN CORPUSCULAR VOLUME 83.3 fL (81.0-99.0); MEAN PLATELET VOLUME 8.9 fl (7.4-10.4); PLATELET 235 x1000/uL (130-400); RED BLOOD CELL COUNT 4.16 mill/uL (4.2-5.4); RED CELL DISTRIBUTION WIDTH 20.4 % (11.6-14.6); WHITE BLOOD COUNT 13.3 x1000/uL (4.5-11.0)
[2023-12-23 11:19] LABS: DIFFERENTIAL COMMENT 1
[2023-12-23 16:30] LABS: ANISOCYTOSIS 1+; PLATELET ESTIMATE NORMAL
[2023-12-24 04:00] VITALS: BP 158/88; PULSE 75; RESP 19; TEMP 36.89184; O2SAT 100
[2023-12-24 04:34] VITALS: PULSE 76; RESP 19; O2SAT 100
[2023-12-24 08:00] VITALS: BP 158/95; PULSE 72; RESP 18; TEMP 36.6696; O2SAT 99
[2023-12-24] MEDS: ACETAMINOPHEN 325MG TABLET PO PRN (08:58)
[2023-12-24 09:08] VITALS: PULSE 79; RESP 18; O2SAT 99
[2023-12-24 10:09] VITALS: BP 158/88; PULSE 72; TEMP 98; O2SAT 99
[2023-12-24 12:00] VITALS: BP 145/99; PULSE 84; RESP 18; TEMP 36.9474; TEMP 36.94740; O2SAT 100
== END 2023-12-24 17:13 | disposition home or self-care (01) | DRG 140 ==
LOC: ER 14:36 → EDBEDREQ 15:07 → 5WST 21:55 → 8WST 12-19 03:58 → 6EST 12-23 23:01
PROVIDERS: ADMIT Hospitalist; ATTEND Hospitalist
DX: J44.1 Chronic obstructive pulmonary disease with (acute) exacerbation (principal); J96.20 Acute and chronic respiratory failure, unspecified whether with hypoxia or hypercapnia; N17.9 Acute kidney failure, unspecified; I13.0 Hypertensive heart and chronic kidney disease with heart failure and stage 1 through stage 4 chronic kidney disease, or unspecified chronic kidney disease; I50.9 Heart failure, unspecified; Z99.81 Dependence on supplemental oxygen; D64.9 Anemia, unspecified; E78.5 Hyperlipidemia, unspecified; E87.5 Hyperkalemia; T40.5X1A Poisoning by cocaine, accidental (unintentional), initial encounter; I20.9 Angina pectoris, unspecified; N18.9 Chronic kidney disease, unspecified; T38.0X5A Adverse effect of glucocorticoids and synthetic analogues, initial encounter; F17.210 Nicotine dependence, cigarettes, uncomplicated; E05.80 Other thyrotoxicosis without thyrotoxic crisis or storm; F14.10 Cocaine abuse, uncomplicated; R73.9 Hyperglycemia, unspecified; T40.5X5A Adverse effect of cocaine, initial encounter; Z59.00 Homelessness unspecified; Z79.82 Long term (current) use of aspirin; Z79.899 Other long term (current) drug therapy; Y92.89 Other specified places as the place of occurrence of the external cause
CPT/HCPCS: 36415; 71045; 80048; 80061; 80305; 81003; 82550; 82607; 82728; 82746; 82962; 83036; 83540; 83550; 83880; 83935; 84132; 84300; 84439; 84443; 84484; 85025; 86705; 87340; 90686; 90732; 93005; 94640; 97166; 99291; C1893; J1650; J1815; J2919; J2920; J3105; J7626

== ENCOUNTER 2024-02-27 13:50 | Inpatient (IN) | payer MEDICARE, MEDICAID ==
[~2024-02-27] VITALS: Ht 162.6 cm; Wt 57.2 kg
[~2024-02-27 13:50] MED LIST changes: +ASPI-1406 PO; -AZIT500T8 MT; +FLUT1AER IH; -FURO20TA4 PO; +LINE600T14 PO; +METO25TA6 PO; +THE2 PO; -TIOT18CA3 INH
[2024-02-27] MEDS: ALBUTEROL (0.083%) 2.5MG/3ML NEB HHN SCH (14:09)
[2024-02-27] MEDS: IPRATROPIUM BROMIDE (0.02%) 0.5MG/2.5ML NEB HHN STA (14:09)
[2024-02-27 14:14] VITALS: PULSE 88; RESP 24; O2SAT 100
[2024-02-27 14:37] LABS: BG BASE EXCESS 9.6 mmol/L (-2.0-3.0); BG CARBOXYHEMOGLOBIN 0.5 % (0.5-1.5); BG DEOXYHEMOGLOBIN 0.5 % (0.0-5.0); BG FRACTION INSPIRED OXYGEN 60; BG METHEMOGLOBIN 0.3 % (0.5-1.5); BG OXYGEN SATURATION 99.5 % (94.0-98.0); BG OXYHEMOGLOBIN 98.7 % (94.0-98.0); BG PH 7.354 (7.350-7.450); BG PO2 180.9 mmHg (83.0-108.0); BG SAMPLE SITE LEFT BRACHIAL; BG TOTAL HEMOGLOBIN 10.4 g/dL (12.0-16.0); BG VENT MODE MASK - HHN
[2024-02-27 15:30] LABS: BG BASE EXCESS 6.8 mmol/L (-2.0-3.0); BG CARBOXYHEMOGLOBIN 0.3 % (0.5-1.5); BG DEOXYHEMOGLOBIN 6.7 % (0.0-5.0); BG FRACTION INSPIRED OXYGEN 40; BG HCO3 ACT 32.3 mmol/L (21.0-28.0); BG METHEMOGLOBIN 0.2 % (0.5-1.5); BG OXYGEN SATURATION 93.3 % (94.0-98.0); BG OXYHEMOGLOBIN 92.8 % (94.0-98.0); BG PCO2 51.2 mmHg (32.0-45.0); BG PH 7.418 (7.350-7.450); BG PO2 63.8 mmHg (83.0-108.0); BG SAMPLE SITE LEFT BRACHIAL; BG TOTAL HEMOGLOBIN 10.3 g/dL (12.0-16.0); BG VENT MODE NASAL CANNULA
[2024-02-27 16:03] LABS: BASOPHILS % 0.7 % (0.0-2.0); DIFFERENTIAL COMMENT 0; EOSINOPHILS % 1.3 % (0.0-5.0); HEMATOCRIT. 36.1 % (36.0-48.0); HEMOGLOBIN. 10.4 g/dL (12.0-16.0); LYMPHOCYTES % 8.9 % (20.0-50.0); MEAN CORPUSCULAR HEMOGLOBIN 26.6 pg (28.0-32.0); MEAN CORPUSCULAR HGB CONC 28.9 g/dL (31.0-37.0); MEAN PLATELET VOLUME 9.3 fl (7.4-10.4); MONOCYTES % 8.8 % (2.0-8.0); NEUTROPHILS % 80.3 % (40.0-76.0); PLATELET 176 x1000/uL (130-400); RED BLOOD CELL COUNT 3.92 mill/uL (4.2-5.4); RED CELL DISTRIBUTION WIDTH 20.1 % (11.6-14.6); WHITE BLOOD COUNT 7.7 x1000/uL (4.5-11.0)
[2024-02-27 16:12] LABS: CHLORIDE 106 mEq/L (98-107); POTASSIUM 5.2 mEq/L (3.5-5.1); SODIUM 145 mEq/L (136-145)
[2024-02-27 16:13] LABS: CALCIUM 9.9 mg/dL (8.7-10.4); CARBON DIOXIDE 34 mEq/L (21-32)
[2024-02-27 16:18] LABS: CREATININE 1.4 mg/dL (0.6-1.0); GLUCOSE 128 mg/dL (70-105); UREA NITROGEN BLOOD 21 mg/dL (9-23)
[2024-02-27 16:21] LABS: TROPONIN I HIGH SENSITIVITY 26 ng/L (3.0-34)
[2024-02-27] MEDS: AZITHROMYCIN 500MG/250ML 250 ML IV NR (17:30)
[2024-02-27] MEDS ORDERED: ALBUTEROL (0.083%) 2.5MG/3ML NEB HHN SCH (17:30)
[2024-02-27] MEDS: CEFTRIAXONE 1GM/50ML 50 ML IV NR (19:23)
[2024-02-27] MEDS: DEXTROSE 50% WATER 50ML SYRINGE IV NR (19:23)
[2024-02-27] MEDS: INSULIN REGULAR (HUMULIN R) 1000UNITS/10ML VIAL IV NR (19:23)
[2024-02-28] VITALS (11 sets, daily range): BP systolic 130–178; BP diastolic 68–92; PULSE 83–102; RESP 16–20; TEMP 36.44736–36.72516; O2SAT 89–100
[2024-02-28] MEDS: IPRATROPIUM/ALBUTEROL 0.5-3(2.5)MG/3ML NEB HHN SCH (00:27)
[2024-02-28] MEDS ORDERED: IBUPROFEN 600MG TABLET PO PRN (02:30)
[2024-02-28] MEDS ORDERED: ACETAMINOPHEN 325MG TABLET PO PRN ×2 (02:30)
[2024-02-28] MEDS ORDERED: ONDANSETRON HCL 4MG/2ML INJ IV PRN (02:30)
[2024-02-28] MEDS: METHYLPREDNISOLONE SOD SUCC 125MG/2ML (ACT-O-VIAL) IV SCH (06:53)
[2024-02-28] MEDS: SODIUM CHLORIDE 0.9% 3ML FLUSH IVF SCH (06:53)
[2024-02-28] MEDS ORDERED: GUAIFENESIN 600MG ER TABLET PO SCH (09:00)
[2024-02-28] MEDS: GUAIFENESIN 600MG ER TABLET PO SCH (09:52)
[2024-02-28] MEDS: ENOXAPARIN 40MG/0.4ML SYR SUBCUT SCH (09:54)
[2024-02-28] MEDS: MONTELUKAST SODIUM 10MG TABLET PO SCH (17:50)
[2024-02-28] MEDS: FAMOTIDINE 20MG TABLET PO SCH (21:00)
[2024-02-28] MEDS: THEOPHYLLINE ANHYDROUS 80 MG/15 ML 120ML PO SCH (22:00)
[2024-02-28] MEDS: HYDROCODONE/ACETAMINOPHEN 5/325MG TABLET PO PRN (23:30)
[2024-02-29] VITALS (10 sets, daily range): BP systolic 120–174; BP diastolic 66–96; PULSE 82–102; RESP 17–20; TEMP 36.22512–37.00296; O2SAT 96–99
[2024-02-29] MEDS: ZOLPIDEM TARTRATE 5MG TABLET PO PRN (02:34)
[2024-02-29] MEDS: AMLODIPINE 5MG TABLET PO SCH (08:28)
[2024-02-29] MEDS: CLONIDINE 0.1MG TABLET PO PRN (12:05)
[2024-03-01] VITALS (8 sets, daily range): BP systolic 135–170; BP diastolic 66–80; PULSE 70–93; RESP 16–20; TEMP 35.5584–37.00296; O2SAT 96–98
[2024-03-02] VITALS (9 sets, daily range): BP systolic 115–170; BP diastolic 79–95; PULSE 68–101; RESP 17–24; TEMP 36.114–36.6696; O2SAT 93–99
[2024-03-02] MEDS: ACETAMINOPHEN 650MG/20.3ML UDC PO PRN (09:24)
[2024-03-03] VITALS: BP 140/60; PULSE 80; RESP 18; TEMP 37.11408; O2SAT 98
[2024-03-03 08:00] VITALS: BP 147/95; PULSE 91; RESP 18; TEMP 36.55848; O2SAT 96
[2024-03-03 12:00] VITALS: BP 159/86; PULSE 79; RESP 18; TEMP 36.16956; O2SAT 100
[2024-03-03 14:23] VITALS: PULSE 78; RESP 20; O2SAT 97
[2024-03-03 16:00] VITALS: BP 151/84; PULSE 98; RESP 18; TEMP 36.44736; O2SAT 98
[2024-03-03 20:58] VITALS: PULSE 89; RESP 20; O2SAT 94
[2024-03-04 02:48] VITALS: PULSE 72; RESP 18; O2SAT 95
[2024-03-04 08:00] VITALS: BP 141/82; PULSE 90; RESP 18; TEMP 36.72516; O2SAT 96
[2024-03-04 10:49] VITALS: PULSE 87; RESP 20
[2024-03-04] MEDS: IPRATROPIUM/ALBUTEROL 0.5-3(2.5)MG/3ML NEB HHN PRN (10:49)
[2024-03-04 15:57] VITALS: BP 159/90; PULSE 90; RESP 20; TEMP 36.78072; O2SAT 99
[2024-03-04 21:07] VITALS: PULSE 90; RESP 20
[2024-03-04] MEDS ORDERED: NALOXONE HCL 0.4MG/ML VIAL IV PRN (22:15)
[2024-03-04] MEDS: ZOLPIDEM TARTRATE 5MG TABLET PO PRN (23:50)
[2024-03-04] MEDS: HYDROCODONE/ACETAMINOPHEN 5/325MG TABLET PO PRN (23:52)
[2024-03-05] VITALS (11 sets, daily range): BP systolic 120–169; BP diastolic 59–97; PULSE 66–98; RESP 17–19; TEMP 36.114–36.55848; O2SAT 95–100
[2024-03-06] VITALS (11 sets, daily range): BP systolic 118–175; BP diastolic 59–94; PULSE 76–100; RESP 16–22; TEMP 36.22512–36.61404; O2SAT 95–100
[2024-03-06] MEDS: IPRATROPIUM/ALBUTEROL 0.5-3(2.5)MG/3ML NEB HHN SCH (17:00)
[2024-03-07] VITALS (12 sets, daily range): BP systolic 135–165; BP diastolic 83–90; PULSE 81–112; RESP 17–22; TEMP 36.16956–36.78072; O2SAT 96–100
[2024-03-08] VITALS (13 sets, daily range): BP systolic 133–177; BP diastolic 86–96; PULSE 87–104; RESP 17–24; TEMP 36.114–36.78072; O2SAT 93–100
[2024-03-08] MEDS: ENOXAPARIN 30MG/0.3ML SYR SUBCUT SCH (10:17)
[2024-03-09] VITALS (12 sets, daily range): BP systolic 130–171; BP diastolic 78–95; PULSE 95–108; RESP 20–24; TEMP 36.00288–38.22528; O2SAT 93–100
[2024-03-09 06:51] LABS: POTASSIUM 5.4 mEq/L (3.5-5.1)
[2024-03-09 06:53] LABS: CALCIUM 9.6 mg/dL (8.7-10.4)
[2024-03-09 06:57] LABS: CREATININE 1.8 mg/dL (0.6-1.0)
[2024-03-09 07:13] LABS: HEMATOCRIT. 32.1 % (36.0-48.0); HEMOGLOBIN. 9.9 g/dL (12.0-16.0); MEAN CORPUSCULAR HEMOGLOBIN 26.8 pg (28.0-32.0); MEAN CORPUSCULAR HGB CONC 30.9 g/dL (31.0-37.0); MEAN CORPUSCULAR VOLUME 86.6 fL (81.0-99.0); MEAN PLATELET VOLUME 9.9 fl (7.4-10.4); PLATELET 292 x1000/uL (130-400); RED BLOOD CELL COUNT 3.71 mill/uL (4.2-5.4); RED CELL DISTRIBUTION WIDTH 17.9 % (11.6-14.6); WHITE BLOOD COUNT 15.5 x1000/uL (4.5-11.0)
[2024-03-09 07:24] LABS: DIFFERENTIAL COMMENT 1
[2024-03-09 21:49] LABS: ANISOCYTOSIS 1+; PLATELET ESTIMATE NORMAL
[2024-03-10] VITALS (12 sets, daily range): BP systolic 135–171; BP diastolic 81–93; PULSE 88–108; RESP 18–24; TEMP 36.00288–38.28084; O2SAT 95–100
[2024-03-10] MEDS: METHYLPREDNISOLONE SOD SUCC 125MG/2ML (ACT-O-VIAL) IV SCH (18:00)
[2024-03-10 18:20] LABS: HEMATOCRIT. 33.4 % (36.0-48.0); HEMOGLOBIN. 10.2 g/dL (12.0-16.0); MEAN CORPUSCULAR HEMOGLOBIN 26.4 pg (28.0-32.0); MEAN CORPUSCULAR HGB CONC 30.6 g/dL (31.0-37.0); MEAN CORPUSCULAR VOLUME 86.2 fL (81.0-99.0); MEAN PLATELET VOLUME 8.7 fl (7.4-10.4); PLATELET 201 x1000/uL (130-400); RED BLOOD CELL COUNT 3.87 mill/uL (4.2-5.4); RED CELL DISTRIBUTION WIDTH 17.6 % (11.6-14.6)
[2024-03-10 18:21] LABS: DIFFERENTIAL COMMENT 1
[2024-03-10 18:23] LABS: POTASSIUM 5.2 mEq/L (3.5-5.1)
[2024-03-10 18:24] LABS: CALCIUM 9.6 mg/dL (8.7-10.4)
[2024-03-10 18:29] LABS: CREATININE 1.7 mg/dL (0.6-1.0)
[2024-03-10 18:46] LABS: PLATELET ESTIMATE NORMAL
[2024-03-10] MEDS: SODIUM ZIRCONIUM CYCLOSILICATE 10GM/PACKET PO NR (23:30)
[2024-03-10] MEDS ORDERED: NALOXONE HCL 0.4MG/ML VIAL IV PRN (23:45)
[2024-03-11] VITALS (10 sets, daily range): BP systolic 137–154; BP diastolic 82–88; PULSE 68–96; RESP 16–22; TEMP 36.05844–36.3918; O2SAT 96–99
[2024-03-11] MEDS: ZOLPIDEM TARTRATE 5MG TABLET PO PRN (00:53)
[2024-03-11] MEDS: HYDROCODONE/ACETAMINOPHEN 5/325MG TABLET PO PRN (00:53)
[2024-03-11 08:26] LABS: CHLORIDE 103 mEq/L (98-107); POTASSIUM 5.1 mEq/L (3.5-5.1); SODIUM 140 mEq/L (136-145)
[2024-03-11 08:27] LABS: CARBON DIOXIDE 32 mEq/L (21-32)
[2024-03-11 08:32] LABS: CREATININE 1.7 mg/dL (0.6-1.0); GLUCOSE 207 mg/dL (70-105); UREA NITROGEN BLOOD 52 mg/dL (9-23)
[2024-03-11] MEDS: SODIUM ZIRCONIUM CYCLOSILICATE 10GM/PACKET PO SCH (10:00)
[2024-03-11 11:29] LABS: CREATINE KINASE 72 IU/L (34-145)
[2024-03-11 14:22] LABS: CLARITY URINE CLEAR (CLEAR); COLOR URINE YELLOW (YELLOW); GLUCOSE URINE TRACE (NEGATIVE); KETONES URINE NEGATIVE (NEGATIVE); LEUKOCYTE ESTERASE URINE NEGATIVE (NEGATIVE); NITRITE URINE NEGATIVE (NEGATIVE); OCCULT BLOOD URINE NEGATIVE (NEGATIVE); PH URINE 5.5 (4.5-8.0); PROTEIN URINE 2+ (NEGATIVE); SPECIFIC GRAVITY URINE 1.016 (1.005-1.030); UROBILINOGEN URINE 0.2 E.U./dL (0.2-1.0)
[2024-03-11 14:35] LABS: SQUAMOUS EPITHELIAL CELL URINE FEW /lpf (RARE/1+)
[2024-03-11 14:36] LABS: BACTERIA URINE TRACE; RBC URINE NONE SEEN /hpf (0-2); WBC URINE 0-2 /hpf (0-2)
[2024-03-12] VITALS (10 sets, daily range): BP systolic 121–161; BP diastolic 66–91; PULSE 81–98; RESP 16–20; TEMP 36.05844–36.72516; O2SAT 94–100
[2024-03-12 15:52] LABS: POTASSIUM 5.1 mEq/L (3.5-5.1)
[2024-03-12 15:58] LABS: CREATININE 1.9 mg/dL (0.6-1.0)
[2024-03-12 16:11] LABS: HEMATOCRIT. 31.7 % (36.0-48.0); HEMOGLOBIN. 9.9 g/dL (12.0-16.0); MEAN CORPUSCULAR HEMOGLOBIN 26.7 pg (28.0-32.0); MEAN CORPUSCULAR HGB CONC 31.2 g/dL (31.0-37.0); MEAN CORPUSCULAR VOLUME 85.7 fL (81.0-99.0); MEAN PLATELET VOLUME 9.2 fl (7.4-10.4); PLATELET 175 x1000/uL (130-400); RED CELL DISTRIBUTION WIDTH 17.8 % (11.6-14.6); WHITE BLOOD COUNT 21.4 x1000/uL (4.5-11.0)
[2024-03-12 16:13] LABS: DIFFERENTIAL COMMENT 1
[2024-03-12 20:22] LABS: PLATELET ESTIMATE NORMAL
[2024-03-13] VITALS (8 sets, daily range): BP systolic 125–146; BP diastolic 71–93; PULSE 86–107; RESP 16–22; TEMP 36.05844–37.2252; O2SAT 94–100
[2024-03-13] MEDS: SODIUM ZIRCONIUM CYCLOSILICATE 10GM/PACKET PO NR (13:08)
[2024-03-13 13:55] LABS: HEMATOCRIT. 34.8 % (36.0-48.0); HEMOGLOBIN. 10.8 g/dL (12.0-16.0); MEAN CORPUSCULAR HEMOGLOBIN 27.2 pg (28.0-32.0); MEAN CORPUSCULAR VOLUME 87.7 fL (81.0-99.0); MEAN PLATELET VOLUME 9.4 fl (7.4-10.4); PLATELET 208 x1000/uL (130-400); RED BLOOD CELL COUNT 3.97 mill/uL (4.2-5.4); RED CELL DISTRIBUTION WIDTH 18.2 % (11.6-14.6); WHITE BLOOD COUNT 22.5 x1000/uL (4.5-11.0)
[2024-03-13 14:19] LABS: DIFFERENTIAL COMMENT 1
[2024-03-13] MEDS ORDERED: DEXTROSE 50% WATER 50ML SYRINGE IV PRN (15:00)
[2024-03-13] MEDS: SODIUM CHLORIDE 0.9% 1,000 ML IV SCH (15:12)
[2024-03-13] MEDS: BUDESONIDE 0.5MG/2ML NEB HHN SCH (15:36)
[2024-03-13 17:27] LABS: ANISOCYTOSIS 1+; GIANT PLATELETS 1+; PLATELET ESTIMATE NORMAL
[2024-03-13] MEDS: BLOOD SUGAR DIAGNOSTIC STRIP TEST SCH (17:36)
[2024-03-13] MEDS: INSULIN LISPRO 100 UNITS/ML SUBCUT SCH (17:43)
[2024-03-13] MEDS: LACTULOSE 20G/30ML UDC PO ONE (18:39)
[2024-03-13] MEDS: LACTULOSE 20G/30ML UDC PO NR (18:50)
[2024-03-14] VITALS (10 sets, daily range): BP systolic 129–148; BP diastolic 78–95; PULSE 84–109; RESP 16–22; TEMP 35.89176–36.72516; O2SAT 95–100
[2024-03-15] VITALS (8 sets, daily range): BP systolic 124–141; BP diastolic 81–84; PULSE 90–99; RESP 19–21; TEMP 36.22512–36.61404; O2SAT 97–100
[2024-03-15] MEDS: LORAZEPAM 1MG TABLET PO NR (15:58)
== END 2024-03-15 18:00 | DRG 133 ==
LOC: ER 13:57 → EDBEDREQTM 17:32 → EDBEDREQ 17:32 → 8WST 21:49 → 4WST 03-10 15:23
PROVIDERS: ADMIT Internal Medicine; ATTEND Internal Medicine
DX: J96.01 Acute respiratory failure with hypoxia (principal); E87.3 Alkalosis; E11.22 Type 2 diabetes mellitus with diabetic chronic kidney disease; N17.9 Acute kidney failure, unspecified; J44.1 Chronic obstructive pulmonary disease with (acute) exacerbation; I50.9 Heart failure, unspecified; I13.0 Hypertensive heart and chronic kidney disease with heart failure and stage 1 through stage 4 chronic kidney disease, or unspecified chronic kidney disease; D64.9 Anemia, unspecified; N18.9 Chronic kidney disease, unspecified; E87.5 Hyperkalemia; E78.5 Hyperlipidemia, unspecified; E83.42 Hypomagnesemia; D72.829 Elevated white blood cell count, unspecified; F41.1 Generalized anxiety disorder; Z79.899 Other long term (current) drug therapy; Z79.82 Long term (current) use of aspirin; Z87.891 Personal history of nicotine dependence; Z99.81 Dependence on supplemental oxygen
CPT/HCPCS: 36415; 36600; 71045; 71101; 80048; 81003; 82375; 82550; 82805; 82962; 83036; 83735; 83880; 84484; 85025; 93005; 94003; 94070; 94640; 94664; 97162; 97166; 99291; J0456; J0696; J1650; J1815; J2405; J2919; J7030; J7626